=== PATIENT | female | born 1945 ===

== ENCOUNTER 2019-05-22 11:47 | Inpatient (IN) ==
[2019-05-22 12:46] LABS: Basophils # 0.1 10*3/uL (0.0-0.2); Basophils % 0.6 % (0.0-0.8); Eosinophils # 0.1 10*3/uL (0.0-0.87); Eosinophils % 1.2 % (0.00-10.9); Hematocrit 37.9 VOL% (35.7-47.0); Hemoglobin 12.1 GM/DL (12.0-16.0); Immature Granulocytes % 0.3 %; Immature Granulocytes Absolute 0.03 #; Lymphocytes # 1.3 10*3/uL (1.4-4.0); Mean Corpuscular HGB Conc 31.9 GM/DL (32-36); Mean Corpuscular Volume 89.6 FL (87-102); Mean Platelet Volume 9.1 FL (9.6-12.0); Monocytes % 9.5 % (1.7-12.7); Neutrophils % 75.4 % (38.7-73.9); Platelet Count 314 T/CUMM (130-400); Red Blood Count 4.23 MC/CUMM (3.8-5.5); Red Cell Distribution Width 12.9 % (9.3-17.3); White Blood Count 9.8 T/CUMM (4-12)
[2019-05-22 12:58] LABS: Bilirubin,Total 0.4 MG/DL (0.2-1.0); Calcium 9.3 MG/DL (8.5-10.1); Osmolality,Calculated 279.1 MOS/KG (273-304); Total Protein 7.9 G/DL (6.4-8.3)
[2019-05-22 13:25] LABS: Apearance,Urine CLEAR (Clear); Bilirubin,Urine Negative (Negative); Blood, Urine Negative (Negative); Glucose,Urine (UA) Negative (Negative); Hyaline Casts,Urine 3 /LPF (0-3); Ketones,Urine Negative (Negative); Nitrite,Urine Negative (Negative); Protein,Urine Negative; Squamous Epithelial Cell,Urine Occasional /HPF (0-10); Urine Color Yellow (Yellow); Urine Specific Gravity 1.018 (1.001-1.035); Urine Urobilinogen < 2.0 EU/DL (0.2-1.0)
[2019-05-22] MEDS ORDERED: cefTRIAXone 250 MG VIAL IV STA (14:18)
[2019-05-22] MEDS ORDERED: ONDANSETRON 4 MG/2 ML VIAL IV PRN (15:09)
[2019-05-22] MEDS ORDERED: ACETAMINOPHEN 325 MG TABLET PO PRN (15:09)
[2019-05-22] MEDS ORDERED: DOCUSATE SODIUM 100 MG CAPSULE PO PRN (15:09)
[2019-05-22] MEDS ORDERED: MORPHINE 4 MG/1 ML VIAL IV PRN (15:09)
[2019-05-22] MEDS: SODIUM CHLORIDE 0.9% 1,000 ML IV SCH (18:51)
[2019-05-22] MEDS ORDERED: ENOXAPARIN 30 MG/0.3 ML SYRINGE SUBCUT SCH (21:00)
[2019-05-23 05:42] LABS: Basophils # 0.1 10*3/uL (0.0-0.2); Basophils % 0.9 % (0.0-0.8); Eosinophils # 0.1 10*3/uL (0.0-0.87); Eosinophils % 2.4 % (0.00-10.9); Hematocrit 34.8 VOL% (35.7-47.0); Immature Granulocytes % 0.3 %; Immature Granulocytes Absolute 0.02 #; Lymphocytes # 1.2 10*3/uL (1.4-4.0); Lymphocytes % 20.6 % (21.3-54.2); Mean Corpuscular HGB Conc 31.6 GM/DL (32-36); Mean Corpuscular Volume 89.2 FL (87-102); Mean Platelet Volume 9.2 FL (9.6-12.0); Monocytes % 11.9 % (1.7-12.7); Neutrophils % 63.9 % (38.7-73.9); Platelet Count 254 T/CUMM (130-400); Red Cell Distribution Width 12.8 % (9.3-17.3); White Blood Count 5.9 T/CUMM (4-12)
[2019-05-23 06:12] LABS: Calcium 8.5 MG/DL (8.5-10.1); Osmolality,Calculated 275.8 MOS/KG (273-304)
[2019-05-23] MEDS: LOSARTAN/HCTZ 50-12.5 MG TABLET PO SCH (09:46)
[2019-05-23] MEDS: SODIUM CHLORIDE 0.9% 1,000 ML IV SCH ×2 (09:46→18:28)
[2019-05-23] MEDS: PANTOPRAZOLE 40 MG TABLET PO SCH (09:47)
[2019-05-23] MEDS: cefTRIAXone 1,000 MG in SYRINGE 1 EACH IV SCH (15:51)
[2019-05-23] MEDS: ENOXAPARIN 40 MG/0.4 ML SYRINGE SUBCUT SCH (20:11)
[2019-05-24 06:16] LABS: Calcium 8.5 MG/DL (8.5-10.1); Osmolality,Calculated 275.8 MOS/KG (273-304)
[2019-05-24] MEDS: PANTOPRAZOLE 40 MG TABLET PO SCH (08:00)
[2019-05-24] MEDS: LOSARTAN/HCTZ 50-12.5 MG TABLET PO SCH (08:00)
[2019-05-24] MEDS: SODIUM CHLORIDE 0.9% 1,000 ML IV SCH ×2 (09:11→20:30)
[2019-05-24] MEDS: CLINDAMYCIN INJ 600 MG in PREMIX 1 EACH IV SCH ×2 (13:07→22:43)
[2019-05-24] MEDS ORDERED: SKIN HEALING OINT (AQUAPHOR) 50 GM TUBE TOP PRN (15:07)
[2019-05-24] MEDS ORDERED: TUBERCULIN SKIN TEST 0.1 ML SYRINGE INTRADERM ONE (15:26)
[2019-05-24] MEDS: cefTRIAXone 1,000 MG in SYRINGE 1 EACH IV SCH (15:27)
[2019-05-24] MEDS: ENOXAPARIN 40 MG/0.4 ML SYRINGE SUBCUT SCH (20:30)
[2019-05-25] MEDS: CLINDAMYCIN INJ 600 MG in PREMIX 1 EACH IV SCH ×3 (05:19→22:19)
[2019-05-25 05:37] LABS: Osmolality,Calculated 272.1 MOS/KG (273-304)
[2019-05-25] MEDS: LOSARTAN/HCTZ 50-12.5 MG TABLET PO SCH (08:02)
[2019-05-25] MEDS: PANTOPRAZOLE 40 MG TABLET PO SCH (08:02)
[2019-05-25] MEDS: SODIUM CHLORIDE 0.9% 1,000 ML IV SCH (10:00)
[2019-05-25] MEDS: cefTRIAXone 1,000 MG in SYRINGE 1 EACH IV SCH (14:32)
[2019-05-25] MEDS: ENOXAPARIN 40 MG/0.4 ML SYRINGE SUBCUT SCH (20:23)
[2019-05-26] MEDS: SODIUM CHLORIDE 0.9% 1,000 ML IV SCH (00:43)
[2019-05-26] MEDS: CLINDAMYCIN INJ 600 MG in PREMIX 1 EACH IV SCH (05:17)
[2019-05-26] MEDS: PANTOPRAZOLE 40 MG TABLET PO SCH (08:55)
[2019-05-26] MEDS: LOSARTAN/HCTZ 50-12.5 MG TABLET PO SCH (08:55)
[2019-05-26 12:45] VITALS: BP 155/80
== END 2019-05-26 14:30 | DRG 603 ==
LOC: EDBD → EDUNIT# → N.ED 11:47 → SUATTDRO 15:05 → N.EDINP 15:05 → N.5E 15:42
PROVIDERS: ADMIT Phlebology; ATTEND Emergency Medicine